=== PATIENT | female | born 1995 | race African-American/Black ===

== ENCOUNTER 2017-06-10 06:15 | Emergency (ER) | payer OTHER ==
[~2017-06-10] VITALS: Ht 185.4 cm; Wt 71.6 kg
[~2017-06-10 06:15] MED LIST: NAPR500 PO
[2017-06-10 06:21] VITALS: BP 125/80; PULSE 60; RESP 14; TEMP 98.3; O2SAT 100
--- NOTE | 2017-06-10 06:54 | PD ---
HPI Chief Complaint: bleeding gum Time Seen by Provider: 06:44 Travel History International Travel<30 days: No Contact w/Intl Traveler<30days: No Traveled to known affect area: No History of Present Illness HPI 32-year-old female complains of bleeding gum on the left side of the lower gum. Patient being treated for strep throat recently and on an antibiotic. Patient started had some bleeding the left side the gum this morning. Patient denies any injury to the area. PFSH Past Medical History Diminished Hearing: No : 0 Social History Alcohol Use: No Tobacco Use: No Substance Use: No Allergies-Medications (Allergen,Severity, Reaction): Coded Allergies: Seafood (Verified Allergy, Severe, Anaphylaxis, 08/31/16) Reported Meds & Prescriptions Reported Meds & Active Scripts Active Naprosyn (Naproxen) 500 Mg Tab 500 Mg PO BID PRN Review of Systems General / Constitutional: No: Fever Eyes: No: Visual changes HENT: No: Headaches Cardiovascular: No: Chest Pain or Discomfort Respiratory: No: Shortness of Breath Gastrointestinal: No: Abdominal Pain Genitourinary: No: Dysuria Musculoskeletal: No: Pain Skin: No Rash Neurologic: No: Weakness Psychiatric: No: Depression Endocrine: No: Polydipsia Hematologic/Lymphatic: No: Easy Bruising Physical Exam Narrative GENERAL: Well-nourished, well-developed patient. SKIN: Focused skin assessment warm/dry. HEAD: Normocephalic. EYES: No scleral icterus. No injection or drainage. NECK: Supple, trachea midline. No JVD or lymphadenopathy. CARDIOVASCULAR: Regular rate and rhythm without murmurs, gallops, or rubs. RESPIRATORY: Breath sounds equal bilaterally. No accessory muscle use. GASTROINTESTINAL: Abdomen soft, non-tender, nondistended. MUSCULOSKELETAL: No cyanosis, or edema. BACK: Nontender without obvious deformity. No CVA tenderness. Patient has an area of gum irritation and bleeding around the wisdom tooth. Data Data Last Documented VS Vital Signs Date Time Temp Pulse Resp B/P Pulse Ox O2 Delivery O2 Flow Rate FiO2 06/10/17 06:21 98.3 60 14 125/80 100 MDM Medical Decision Making Medical Screen Exam Complete: Yes Emergency Medical Condition: Yes Differential Diagnosis Differential diagnosis including gingivitis, bleeding gum. Narrative Course 22-year-old female with bleeding gum around the wisdom tooth Diagnosis Primary Impression: Gingival bleeding Additional Instructions: Patient was referred to a dentist this morning. Med/Other Pt SpecificInfo: No Change to Meds Disposition: 01 DISCHARGE HOME Condition: Stable Martin Covington MD Jun 10, 2017 06:54
[2017-06-11] MEDS ORDERED: AMOX875T2 PO (22:25)
[2017-06-11] MEDS ORDERED: PRED20 PO (22:25)
[2017-06-11] MEDS ORDERED: HYDR-3516 PO (22:25)
[2017-06-11] MEDS ORDERED: AUGM875T3 PO (22:34)
== END 2017-06-10 07:00 | disposition home or self-care (01) ==
LOC: PHED 06:15
DX: K06.8 Other specified disorders of gingiva and edentulous alveolar ridge (principal)
CPT/HCPCS: 99281

== ENCOUNTER 2017-06-11 22:08 | Emergency (ER) | payer OTHER ==
[~2017-06-11] VITALS: Ht 185.4 cm; Wt 71.8 kg
[2017-06-11 22:12] VITALS: BP 112/67; PULSE 70; RESP 20; TEMP 98.9; O2SAT 100
[2017-06-11] MEDS ORDERED: PRED20 PO (22:25)
[2017-06-11] MEDS ORDERED: HYDR-3516 PO (22:25)
[2017-06-11] MEDS ORDERED: AMOX875T2 PO (22:25)
[2017-06-11] MEDS ORDERED: AUGM875T3 PO (22:34)
--- NOTE | 2017-06-11 22:46 | PD ---
HPI Chief Complaint: ENT Complaint Time Seen by Provider: 22:20 Travel History International Travel<30 days: No Contact w/Intl Traveler<30days: No Traveled to known affect area: No History of Present Illness HPI 22-year-old female presents requesting prescription for Augmentin. States she was prescribed Augmentin 4 days ago for streptococcal pharyngitis. States she lost her prescription today. She has not taken any doses today. Denies fever since starting antibiotics. Reports continued sore throat worse with swallowing. PFSH Past Medical History Medical History: Denies Significant Hx Diminished Hearing: No Tetanus Vaccination: Unknown Influenza Vaccination: No ?: Not LMP: Now : 0 Past Surgical History Surgical History: No Previous Surgery Social History Alcohol Use: No Tobacco Use: No Substance Use: No Allergies-Medications (Allergen,Severity, Reaction): Coded Allergies: Seafood (Verified Allergy, Severe, Anaphylaxis, 06/11/17) Reported Meds & Prescriptions Reported Meds & Active Scripts Active Augmentin (Amoxicillin-Clavulanate) 875-125 Mg Tab 1 Tab PO BID 7 Days Reported Hydrocodone-Acetaminophen 5-325 mg Tab 1 Tab PO Q6H PRN Prednisone 20 Mg Tab 20 Mg PO DIRECTED Take 60 MG daily x 4 days, then 40 MG x 4 days, then 20 MG daily x 4 days. Amoxicillin-Clavulanate 875-125 mg Tab 875 Mg PO BID not for use in CrCl <30 mL/minute Review of Systems Except as stated in HPI: all other systems reviewed are Neg Physical Exam Narrative GENERAL: Well-nourished, well-developed female in no acute distress. Afebrile. Ambulatory. SKIN: Focused skin assessment warm/dry. HEAD: Normocephalic. EYES: No scleral icterus. No injection or drainage. ENT: Mucosa pink and moist. Minimal erythema with moderate edema of the right tonsil and without exudates. No uvular edema. No uvular, palatal, or tonsillar deviation. Airway patent. Nasal turbinates appear normal without nasal blood, purulent drainage or septal hematoma. NECK: Supple, trachea midline. No JVD or lymphadenopathy. CARDIOVASCULAR: Regular rate and rhythm without murmurs, gallops, or rubs. RESPIRATORY: Breath sounds equal bilaterally. No accessory muscle use. Data Data Last Documented VS Vital Signs Date Time Temp Pulse Resp B/P Pulse Ox O2 Delivery O2 Flow Rate FiO2 06/11/17 22:20 14 06/11/17 22:12 98.9 70 112/67 100 MDM Medical Decision Making Medical Screen Exam Complete: Yes Emergency Medical Condition: Yes Medical Record Reviewed: Yes Differential Diagnosis Strep throat, medication refill, viral pharyngitis Narrative Course 22-year-old female presents requesting prescription for Augmentin because she lost hers today. She was prescribed Augmentin 4 days ago for streptococcal pharyngitis but has been unable to take her doses today because she lost them. Physical exam is reassuring. There is minimal erythema without exudates. Moderate edema of the right tonsil. Airway pain. Vital signs stable. Patient will be given 7 days of Augmentin and told to follow-up with primary care physician or return for worsening symptoms. She understands and agrees to plan. Diagnosis Primary Impression: Strep throat Referrals: [facility] Primary Care Physician Patient Instructions: General Instructions Additional Instructions: Rest and drink plenty of fluids. Augmentin as directed, until gone. Apply ice to the affected area for 20 minutes at a time, as needed for pain and swelling. Follow-up with a primary care physician. Return to the emergency room for worsening symptoms. Scripts Amoxicillin-Clavulanate (Augmentin)875-125 Mg Tab1 Tab PO BID 7 Days Ref 0 Prov:Marcy Barker MD 06/11/17 Disposition: 01 DISCHARGE HOME Condition: Stable Mylene Ahn Jun 11, 2017 22:46
== END 2017-06-11 22:49 | disposition home or self-care (01) ==
LOC: PHEFT 22:08
DX: J02.0 Streptococcal pharyngitis (principal)
CPT/HCPCS: 99283